=== PATIENT | female | born 1970 | race Caucasian/White ===

== ENCOUNTER 2023-07-19 16:26 | Inpatient (IN) | payer MEDICAID ==
[~2023-07-19] VITALS: Ht 160 cm; Wt 65.0 kg
[2023-07-19 17:45] LABS: GLUCOMETER DEV NAME(LOC) POC.BV; POC SARS-COV2 AG, FIA NEGATIVE (NEGATIVE)
[2023-07-19 18:48] VITALS: BP 120/83; PULSE 78; RESP 18; TEMP 97.3
[2023-07-19 19:51] VITALS: BP 121/69; PULSE 62; RESP 17; TEMP 97.9
[2023-07-19] MEDS: ZOLPIDEM TARTRATE 10 MG TABLET PO PRN (22:31)
[2023-07-20] MEDS: NICOTINE 21 MG/24 HOUR PATCH TD SCH (00:46)
[2023-07-20 07:48] LABS: BASOPHILS % (AUTO) 1.2 % (0.0-2.0); EOSINOPHILS % (AUTO) 7.7 % (1.0-6.0); HEMATOCRIT 41.3 % (36-46); HEMOGLOBIN 13.9 g/dL (12.0-16.0); LYMPHOCYTES # (AUTO) 3.3 K/uL (1.0-4.8); MEAN CORPUSCULAR HEMOGLOBIN 31.8 pg (26.0-34.0); MEAN CORPUSCULAR HGB CONC 33.5 G/dL (31.0-37.0); MEAN CORPUSCULAR VOLUME 95 fL (80-100); MONOCYTES # (AUTO) 0.5 K/uL (0.1-1.0); MONOCYTES % (AUTO) 6.7 % (2.0-9.0); NEUTROPHILS # (AUTO) 3.5 K/uL (1.8-7.7); NEUTROPHILS % (AUTO) 43.4 % (40.0-70.0); PLATELET COUNT (AUTO) 341 K/uL (150-450); RED BLOOD CELL COUNT(AUTO) 4.36 MIL/uL (4.00-5.20); WHITE BLOOD COUNT (AUTO) 8.1 K/uL (4.5-11.0)
[2023-07-20 08:02] LABS: APPEARANCE,URINE HAZY (CLEAR); BILIRUBIN,URINE NEGATIVE (NEGATIVE); COLOR,URINE LIGHT YELLOW (YELLOW); GLUCOSE, URINE (UA) NEGATIVE (NEGATIVE); KETONES,URINE NEGATIVE (NEGATIVE); LEUKOCYTE ESTERASE ,URINE NEGATIVE (NEGATIVE); NITRATE,URINE NEGATIVE (NEGATIVE); OCCULT BLOOD,URINE MODERATE (NEGATIVE); PROTEIN,URINE NEGATIVE (NEGATIVE); SPECIFIC GRAVITIY, URINE 1.009 (1.003-1.030); UROBILINOGEN,URINE <=1.0 mg/dL (<=1.0)
[2023-07-20 08:09] LABS: HEMOGLOBIN A1C 5.3 % (3.8-5.6)
[2023-07-20 08:10] LABS: AMPHET/METH SCREEN,URINE NEGATIVE (NEGATIVE); BARBITURATE SCREEN, URINE NEGATIVE (NEGATIVE); BENZODIAZEPINES SCREEN,URINE NEGATIVE (NEGATIVE); CANNABINOID SCREEN,URINE NEGATIVE (NEGATIVE); COCAINE SCREEN,URINE NEGATIVE (NEGATIVE); METHADONE SCREEN, URINE NEGATIVE (NEGATIVE); OPIATE SCREEN,URINE NEGATIVE (NEGATIVE); PHENCYCLIDINE SCREEN,URINE NEGATIVE (NEGATIVE)
[2023-07-20 08:11] LABS: ALCOHOL, URINE DRUG SCREEN NEGATIVE (NEGATIVE)
[2023-07-20] MEDS: HALOPERIDOL 5 MG TABLET PO PRN (08:14)
[2023-07-20] MEDS: LORazepam 2 MG TABLET PO PRN (08:14)
[2023-07-20 08:22] LABS: ALANINE AMINOTRANSFERASE 19 U/L (12-78); ALBUMIN 3.3 g/dL (3.4-5.0); ALKALINE PHOSPHATASE 74 U/L (46-116); ANION GAP 9 mmol/L (8-16); ASPARTATE AMINOTRANSFERASE 17 U/L (15-37); BILIRUBIN,TOTAL 0.3 mg/dL (0.1-1.0); CARBON DIOXIDE 22 mmol/L (22-29); CHLORIDE 113 mmol/L (98-107); CHOL/HDL RATIO 3.9 (3.9-5.7); CHOLESTEROL 187 mg/dL (131-200); CREATININE 1.11 mg/dL (0.60-1.30); FREE T4 (FREE THYROXINE) 0.83 ng/dL (0.76-1.46); GLOMERULAR FILTR. RATE CALC 52 mL/min (>60); GLUCOSE,RANDOM 89 mg/dL (70-110); HCG,QUANTITATIVE < 1 mIU/mL (0-6); HDL CHOLESTEROL 48 mg/dL (40-60); LDL CHOL (CALC.) 118 mg/dL (0-130); POTASSIUM 4.4 mmol/L (3.5-5.1); SODIUM SERUM 144 mmol/L (136-145); T4 (THYROXINE) 6.5 mcg/dL (4.7-13.3); THYROID STIMULATING HORMONE 3.66 uIU/mL (0.36-3.74); TOTAL PROTEIN, SERUM 6.7 g/dL (6.4-8.2); TRIGLYCERIDES 106 mg/dL (15-150); UREA NITROGEN, BLOOD 17 mg/dL (7-18)
[2023-07-20 08:34] LABS: BACTERIA,URINE Few /HPF (None Seen); SQUAMOUS EPITHELIAL CELL,UR Moderate /LPF (None Seen); WBC,URINE 0-2 /HPF (0-5)
[2023-07-20 13:38] VITALS: BP 105/64; PULSE 60; RESP 18; TEMP 97.7
[2023-07-20] MEDS: RisperiDONE 1 MG TABLET PO SCH (17:12)
[2023-07-20 20:13] VITALS: BP 94/61; PULSE 57; RESP 20; TEMP 97.6
[2023-07-20] MEDS ORDERED: OMEPRAZOLE 20 MG CAPSULE PO PRN (20:30)
[2023-07-20] MEDS ORDERED: ONDANSETRON HCL 4 MG TABLET PO PRN (20:30)
[2023-07-20] MEDS ORDERED: DOCUSATE SODIUM 100 MG CAPSULE PO PRN (20:30)
[2023-07-20] MEDS ORDERED: BACITRACIN 28 GM OINTMENT TP PRN (20:30)
[2023-07-20] MEDS ORDERED: PETROLATUM,WHITE 28 GM JELLY TP PRN (20:30)
[2023-07-20] MEDS ORDERED: BENZOCAINE/MENTHOL LOZENGE PO PRN (20:30)
[2023-07-20] MEDS ORDERED: MAGNESIUM HYDROXIDE SUSPENSION 30 ML UDCUP PO PRN (20:30)
[2023-07-20] MEDS ORDERED: LOPERAMIDE HCL 2 MG CAPSULE PO PRN (20:30)
[2023-07-20] MEDS ORDERED: ALBUTEROL SULFATE HFA 90 MCG/PUFF 8 GM INHALER IH PRN (20:30)
[2023-07-20] MEDS ORDERED: CloNIDine HCL 0.1 MG TABLET PO PRN (20:30)
[2023-07-21 05:01] VITALS: BP 121/76; PULSE 82; RESP 18; TEMP 97.6; O2SAT 99
[2023-07-21] MEDS: IBUPROFEN 600 MG TABLET PO PRN (05:06)
[2023-07-21 05:51] VITALS: RESP 18
[2023-07-21 08:00] VITALS: BP 122/92; PULSE 74; RESP 17; TEMP 97.2; O2SAT 98
[2023-07-21 08:26] VITALS: BP 122/92; PULSE 74; RESP 17; TEMP 97.2; O2SAT 98
[2023-07-21] MEDS: PALIPERIDONE PALMITATE 234 MG/1.5 ML SYRINGE IM ONE (16:16)
[2023-07-21] MEDS: AMOXICILLIN TRIHYDRATE 500 MG CAPSULE PO SCH (17:56)
[2023-07-21] MEDS: MAG HYDROX/ALUMINUM HYD/SIMETH ES 30 ML SUSPENSION UDCUP PO PRN (21:02)
[2023-07-21 21:08] VITALS: BP 125/88; PULSE 74; RESP 18; TEMP 97.3; O2SAT 98
[2023-07-21] MEDS: ACETAMINOPHEN 325 MG TABLET PO PRN (23:54)
[2023-07-21 23:58] VITALS: BP 142/97; PULSE 97; RESP 18; TEMP 98.2; O2SAT 98
[2023-07-22 08:12] VITALS: BP 116/88; PULSE 94; RESP 16; TEMP 97.2; O2SAT 99
[2023-07-22] MEDS: DIVALPROEX SODIUM 500 MG DR TABLET PO SCH (16:21)
[2023-07-22 20:24] VITALS: BP 132/91; PULSE 75; RESP 18; TEMP 97.5; O2SAT 98
[2023-07-23 08:30] VITALS: BP 133/80; PULSE 86; RESP 18; TEMP 97.1; O2SAT 98
[2023-07-23] MEDS ORDERED: PALI234D IM (13:42)
[2023-07-23] MEDS ORDERED: DIVA-112 PO (13:42)
[2023-07-23] MEDS ORDERED: RISP-31 PO (13:44)
[2023-07-23] MEDS ORDERED: AMOX500C2 PO (13:49)
== END 2023-07-23 16:16 | disposition home or self-care (01) | DRG 750 ==
LOC: B3A 19:00
PROVIDERS: ADMIT Psychiatry & Neurology Psychiatry; ATTEND Psychiatry & Neurology Psychiatry
DX: F25.1 Schizoaffective disorder, depressive type (principal); F10.10 Alcohol abuse, uncomplicated; F12.90 Cannabis use, unspecified, uncomplicated; Z20.822 Contact with and (suspected) exposure to COVID-19; K59.00 Constipation, unspecified; F41.9 Anxiety disorder, unspecified; G47.00 Insomnia, unspecified
CPT/HCPCS: 80053; 80061; 80307; 81001; 83036; 84436; 84439; 84443; 84702; 85025; 86592